=== PATIENT | male | born 1980 | race African-American/Black ===

== ENCOUNTER 2016-06-06 20:16 | Emergency (ER) | payer BC ==
--- NOTE | ~2016-06-06 | EKG ---
PATIENT: RONDA MEYER UNIT #: [id number] Ventricular Rate: 101 BPM Atrial Rate: 101 BPM P-R Interval: 130 ms QRS Duration: 82 ms Q-T Interval: 392 ms QTC Calculation(Bezet): 508 ms P [place]: 64 degrees Calculated R [place]: 76 degrees Calculated T [place]: -3 degrees Diagnosis Line: Sinus tachycardia Diagnosis Line: Left atrial enlargement Diagnosis Line: T wave abnormality, consider lateral ischemia Diagnosis Line: Abnormal ECG Diagnosis Line: No previous ECGs available Diagnosis Line: Confirmed by ESE FLORES MD ([id number]) on 06/09/2016 Diagnosis Line: 11:11:34 AM INTERPRETING MD: SANDRA LINDQUIST
--- NOTE | ~2016-06-06 | CR72 ---
[facility] A Service of [facility] RADIOLOGY TEXT RESULTS PATIENT: RONDA MEYER LOCATION: SED : [birth year] UNIT #: [id number] AGE: [address]: Houston Sparks MD SEX: M ORDER DR: [id number] [address] [address] [id number] E MR#: [id number] Acc #: [id number] NAME: RONDA MEYER : 1980 SEX: M STUDY DATE/TIME: 06/06/2016 23:11 UNIT: SED ROOM: STUDY DESCRIPTION: CR Chest Single View Portable Attending Physician: Houston Sparks M.D. Ordering Physician: Houston Sparks M.D. Primary Care Physician: No Primary Care Physician MEDICAL IMAGING REPORT This report is preliminary unless electronic signature is present. EXAM Portable AP view of the chest COMPARISON August 14, 2010 and June 16, 2005. INDICATION 36-year-old male with dyspnea for 2 weeks. FINDINGS There is no pneumothorax. There is cardiomegaly with cephalization of pulmonary vasculature and increased bilateral perihilar and bibasilar opacities favoring mild pulmonary interstitial edema. No significant pleural effusion is seen. Given the configuration of the heart, superimposed pericardial effusion cannot be excluded. IMPRESSION 1. Increasing cardiomegaly. Given the configuration, superimposed pericardial effusion cannot be excluded. 2. Increased bilateral perihilar opacities emanating into all lobes of the lungs most consistent with interstitial edema. No definite pleural effusion. 1. Dictated by... Bishnu Lira M.D. THIS IS AN ELECTRONICALLY VERIFIED REPORT Bishnu Lira M.D. at 06/10/2016 8:02 AM CARTER/df TD: 06/07/2016 05:57 JOB #: [id number] [facility] A Service of [facility] RADIOLOGY TEXT RESULTS PATIENT: RONDA MEYER LOCATION: SED : [birth year] UNIT #: [id number] AGE: [address]: Houston Sparks MD SEX: M ORDER DR: MEDICAL IMAGING REPORT
--- NOTE | ~2016-06-06 | CT4 ---
[facility]. [facility] A Service of [facility] RADIOLOGY TEXT RESULTS PATIENT: RONDA MEYER LOCATION: SED : [birth year] UNIT #: [id number] AGE: [address]: Houston Sparks MD SEX: M ORDER DR: [id number] [address] [address] [id number] E MR#: [id number] Acc #: [id number] NAME: RONDA MEYER : 1980 SEX: M STUDY DATE/TIME: 06/06/2016 22:09 UNIT: SED ROOM: STUDY DESCRIPTION: CT Abd and Pelv Wo Cont Attending Physician: Houston Sparks M.D. Ordering Physician: Houston Sparks M.D. Primary Care Physician: No Primary Care Physician MEDICAL IMAGING REPORT This report is preliminary unless electronic signature is present. EXAM CT scan of the abdomen and pelvis without contrast, 06/06/2016 HISTORY Abdominal pain and constipation for [address] was performed through the abdomen and pelvis following oral contrast administration only, as per clinician request. This CT exam was performed with one or more of the following radiation dose reduction techniques: Automatic exposure control, adjustment of mA and/or kV according to patient size, and iterative reconstruction. FINDINGS ABDOMEN: The exam is limited by the lack of intravenous contrast. There is no prior CT scan of the abdomen and pelvis for comparison. The liver, spleen, pancreas, adrenal glands and kidneys are normal. Question is raised of some minimal increased density along the dependent portion of the gallbladder, which could reflect small stones. PELVIS FINDINGS: The gut, mesenteric and donald structures are normal. There is no free fluid in the abdomen or pelvis. Images of the lung bases demonstrate moderate cardiomegaly. Moderate right and small left pleural effusions with bibasilar atelectasis. IMPRESSION 1. Question is raised of some subtle increased density along the dependent portion of the gallbladder, which could reflect cholelithiasis. 2. Moderate right and small left pleural effusions with bibasilar atelectasis. 3. Moderate cardiomegaly. [facility] A Service of [facility] RADIOLOGY TEXT RESULTS PATIENT: RONDA MEYER LOCATION: [facility] [place] : [birth year] UNIT #: [id number] AGE: [address]: Houston Sparks MD SEX: M ORDER DR: Dictated by... Teo Nuñez M.D. THIS IS AN ELECTRONICALLY VERIFIED REPORT Teo Nuñez M.D. at 06/07/2016 4:21 PM AZAEL/cathy TD: 06/07/2016 04:06 JOB #: [id number] MEDICAL IMAGING REPORT
[~2016-06-06 20:16] MED LIST: AMLODIPINE BESYL5 MG PO; BP MED PO; FLEXERIL PO; FLEXERIL10 MG PO; HCTZ PO; HYDROCHLOROTHIA25 MG PO; IBUPROFEN800 MG PO; K-DUR20 ME1 PO; NAMENDA10 MG; NO MEDICATIONS; NORVASC10 MG PO; VOLTAREN75 MG PO; [UNRECOGNIZED DRUG - OTHER] OU
[2016-06-06 20:25] LABS: BASOPHIL# 0.1 X10e3 (0-0.3); EOSINOPHIL# 0.1 X10e3 (0-0.7); EOSINOPHIL% 1.7 % (0.0-7.0); HEMATOCRIT 46.4 % (38.0-50.0); LYMPHOCYTE# 1.6 X10e3 (1.0-3.5); LYMPHOCYTE% 25.9 % (17.0-45.0); MEAN CELL VOLUME 84.7 FL (83-96); MEAN CORPUSCULAR HEMOGLOBIN 27.4 PG (28-34); MEAN CORPUSCULAR HGB CONC 32.4 g/dL (30-36); MEAN PLATELET VOLUME 8.8 FL (6.5-11.5); MONOCYTE# 0.7 X10e3 (0-1.0); MONOCYTE% 11.4 % (3.0-12.0); NEUTROPHIL# 3.8 X10e3 (1.5-7.1); PLATELET COUNT 302 X10e3 (140-420); RED BLOOD COUNT 5.47 X10e (3.90-5.60); RED CELL DISTRIBUTION WIDTH 17.3 % (11.0-15.5); WHITE BLOOD COUNT 6.3 X10e3 (4.0-10.5)
[2016-06-06 20:28] LABS: DIFF IND NO
[2016-06-06 20:34] LABS: URINE SOURCE CLEAN CATCH
[2016-06-06 20:37] LABS: URINE APPEARANCE CLEAR; URINE BILIRUBIN NEG (NEG); URINE BLOOD NEG (NEG); URINE COLOR YELLOW; URINE GLUCOSE NEG (NORM); URINE KETONE NEG (NEG); URINE LEUKOCYTE ESTERASE NEG (NEG); URINE NITRATE NEG (NEG); URINE PROTEIN 2+ (NEG); URINE UROBILINOGEN 0.2 MG/DL (NORM)
[2016-06-06 20:42] LABS: MICRO INDICATED? YES
[2016-06-06 20:44] LABS: ALBUMIN SERUM 3.6 g/dL (3.5-5.0); BILIRUBIN, DIRECT 0.3 mg/dL (0.0-0.2); BILIRUBIN,INDIRECT 0.7 mg/dL (0.0-0.9); BUN/CREATININE RATIO 8.82; CALCIUM SERUM 8.6 mg/dL (8.4-10.2); CREATININE SERUM 1.7 mg/dL (0.6-1.4); GLOM FILT RATE Estimated 59.3 mL/min (>60); POTASSIUM 3.2 mmol/L (3.5-5.1); PROTEIN TOTAL SERUM 6.2 g/dL (6.0-8.3)
[2016-06-06 20:45] LABS: URINE BACTERIA NEG (NEG); URINE RBC 0-2 /[HPF] (0-2)
[2016-06-06 20:46] LABS: CULTURE INDICATED? NO; URINE MUCUS PRESENT; URINE SQUAMOUS EPITHELIAL CELL OCCAS /[HPF]
[2016-06-06 20:47] LABS: AMPHETAMINE NEG (NEG); BARBITURATES NEG (NEG); BENZODIAZEPINES NEG (NEG); COCAINE NEG (NEG); MARIJUANA NEG (NEG); OPIATES NEG (NEG); TRICYCLIC ANTIDEPRESSANTS NEG (NEG); U METHADONE NEG (NEG)
[2016-06-06 23:22] LABS: INR 1.1; PROTHROMBIN TIME (PATIENT) 12.2 SECONDS (9.5-12.4)
[2016-06-06 23:29] LABS: PARTIAL THROMBOPLASTIN TIME 27.1 SECONDS (25.6-38.1)
[2016-06-06 23:43] LABS: POC - CKMB 1.3 ng/mL (0.0-7.9); POC - MYOGLOBIN 77.6 ng/mL (0.0-169.0)
[2016-06-06 23:44] LABS: POC - TROPONIN <0.05 ng/mL (<=0.05)
== END 2016-06-07 02:39 ==
LOC: SED 20:16
PROVIDERS: Emergency Medicine
DX: I50.9 Heart failure, unspecified (principal); I10 Essential (primary) hypertension; R10.84 Generalized abdominal pain
CPT/HCPCS: 36415; 71010; 74176; 80048; 80076; 80307; 81003; 82150; 82553; 83690; 83874; 83880; 84484; 85025; 85610; 85730; 93005; 96361; 96374; 96375; 96376; 99291; J1940; J2060